=== PATIENT | female | born 2000 | race Caucasian/White ===

== ENCOUNTER 2020-01-02 22:48 | Emergency (ER) | payer BC ==
[~2020-01-02] VITALS: Ht 170.2 cm; Wt 102.1 kg
[2020-01-02 23:05] VITALS: BP_SYST 125
--- NOTE | 2020-01-02 23:05 | NUR ---
PT AAO AND AMBULATORY C/O CHOKING ON ICE TEA THEN LOSING CONSCIOUSNESS HITTING HER HEAD ON THE TILE FLOOR. PAIN REPORTED 3/10 AND PT HAS LAC TO POSTERIOR HEAD. WOUND IRRIGATED FOR MD EVALUATION.
--- NOTE | 2020-01-02 23:05 | NUR ---
Patient to ER bed 5 to gown for evaluation. Side rails up. ASSUMED CARE OF PT.
--- NOTE | 2020-01-03 00:15 | NUR ---
ER Dr. HER at bedside examining patient.
--- NOTE | 2020-01-03 00:35 | NUR ---
XRAY DONE AT BEDSIDE.
[2020-01-03 01:05] LABS: BASOPHILS # (AUTO) 0.1 K/uL (0.0-0.2); BASOPHILS % (AUTO) 0.8 % (0.0-2.0); EOSINOPHILS # (AUTO) 0.1 K/uL (0.0-0.4); HEMATOCRIT 35.2 % (36-48); HEMOGLOBIN 11.7 g/dL (12.0-16.0); LYMPHOCYTES # (AUTO) 1.4 K/uL (1.0-5.5); LYMPHOCYTES % (AUTO) 12.3 % (20.5-51.5); MEAN CORPUSCULAR HEMOGLOBIN 25 pg (27-31); MEAN CORPUSCULAR HGB CONC 33 % (32-36); MEAN CORPUSCULAR VOLUME 77 fL (79.0-98.0); MONOCYTES # (AUTO) 0.7 K/uL (0.0-1.0); NEUTROPHILS # (AUTO) 8.8 K/uL (1.8-7.7); NEUTROPHILS % (AUTO) 79.9 % (40.0-70.0); PLATELET COUNT (AUTO) 349 K/uL (130-430); RED BLOOD CELL COUNT(AUTO) 4.59 MIL/uL (4.2-6.2); RED CELL DISTRIBUTION WIDTH 14.7 % (9.0-15.0)
[2020-01-03 01:17] LABS: ANION GAP 8 (5-15); CALCIUM 8.6 mg/dL (8.4-11.0); CHLORIDE 103 mmol/L (98-107); CREATININE 1.06 mg/dL (0.55-1.30); GLUCOSE 116 mg/dL (70-99); POTASSIUM 3.7 mmol/L (3.5-5.1); SODIUM SERUM 137 mmol/L (136-145); UREA NITROGEN, BLOOD 12 mg/dL (8-21)
[2020-01-03 01:20] LABS: BILIRUBIN,URINE NEGATIVE (NEGATIVE); BLOOD, URINE 1+ (NEGATIVE); CLARITY/URINE CLEAR (CLEAR); COLOR,URINE YELLOW (YELLOW); GLUCOSE,URINE NEGATIVE (NEGATIVE); KETONES,URINE NEGATIVE (NEGATIVE); LEUKOCYTE ESTERASE ,URINE TRACE (NEGATIVE); NITRITE, URINE NEGATIVE (NEGATIVE); PH,URINE 6.5 (5.0-8.0); PROTEIN URINE NEGATIVE (NEGATIVE); UROBILINOGEN,URINE 0.2 (0.2-1.0)
[2020-01-03 01:26] LABS: ALANINE AMINOTRANSFERASE 88 U/L (12-78); ALBUMIN 3.5 g/dL (3.4-4.8); ALCOHOL, BLOOD < 3 mg/dL (<10); ASPARTATE AMINOTRANSFERASE 52 U/L (10-37); GFR AFRICAN AMERICAN 85 mL/min (>90); TOTAL BILIRUBIN 0.2 mg/dL (0.0-1.0)
[2020-01-03 01:34] LABS: BACTERIA,URINE FEW /HPF (None Seen); WBC,URINE 0-3 /HPF (0-3)
[2020-01-03 01:44] LABS: BARBITURATE, URINE NEGATIVE (NEG <=200); BENZODIAZEPINE, URINE NEGATIVE (NEG <=150); CANNABINOID, URINE NEGATIVE (NEG <=50); COCAINE, URINE NEGATIVE (NEG <=150); METHAMPHETAMINES SCREEN,URINE NEGATIVE (NEG <=500); OPIATE, URINE NEGATIVE (NEG <=100); PHENCYCLIDINE SCREEN,URINE NEGATIVE (NEG <=25); UR TRICYCLIC ANTIDEPRESSANTS NEGATIVE (NEG <=300); URINE AMPHETAMINE NEGATIVE (NEG <=500); URINE METHADONE NEGATIVE (NEG <=200); URINE OXYCODONE SCREEN NEGATIVE (NEG <=100); URINE PROPOXYPHENE SCREEN NEGATIVE (NEG <=300)
--- NOTE | 2020-01-03 02:00 | NUR ---
PT AWAITING DISPOSITION. PT RESTING QUIETLY IN NO DISTRESS.
[2020-01-03] MEDS ORDERED: BACITRACIN ZINC 15 GM TOPICAL OINTMENT TP ONE (03:30)
[2020-01-03 03:40] VITALS: BP_SYST 125
--- NOTE | 2020-01-03 03:40 | NUR ---
Patient given written and verbal discharge instructions and verbalizes understanding. DR. TAINA OSEI MD discussed with patient the results and treatment provided. Patient in stable condition. ID arm band removed. Rx of given. Patient educated on pain management and to follow up with PMD. Pain Scale 2/10. Opportunity for questions provided and answered. Medication side effect fact sheet provided.
== END 2020-01-03 03:40 | disposition home or self-care (01) ==
LOC: SED 22:48
DX: S09.90XA Unspecified injury of head, initial encounter (principal); N39.0 Urinary tract infection, site not specified; R55 Syncope and collapse; W18.39XA Other fall on same level, initial encounter; Y93.89 Activity, other specified; Y92.89 Other specified places as the place of occurrence of the external cause; Y99.8 Other external cause status
CPT/HCPCS: 36415; 70450; 71045; 80053; 80307; 81000; 81025; 84484; 85025; 85379; 93005; 99285; G0482